=== PATIENT | female | born 1995 | race Caucasian/White ===

== ENCOUNTER 2016-07-23 21:16 | Emergency (ER) | payer BC ==
[2016-07-23 21:43] VITALS: BP 110/76
--- NOTE | 2016-07-23 22:46 | RAD ---
Indication: Palpitations. 2 views of the chest including dual energy PA views demonstrate no mediastinal shift. Heart is of normal size and configuration. Lung kee demonstrate no pleural fluid, pneumonia or pneumothorax. IMPRESSION: No active cardiopulmonary disease is noted.
[2016-07-23 22:49] LABS: Hematocrit 40 % (35-47); Mean Corpuscular HGB Conc 33 g/dl (31-36); Mean Corpuscular Hemoglobin 28 pg (27-31); Mean Corpuscular Volume 84 fL (80-97); Mean Platelet Volume 8 um3 (7.4-10.4); Red Blood Count 4.72 10^6/ul (4.0-5.4); Red Cell Distribution Width 14 % (10.5-15); White Blood Count 7.5 10^3/ul (3.5-10.8)
[2016-07-23 23:02] LABS: Albumin 4.4 g/dL (3.2-5.2); BUN/Creatinine Ratio 12.9 (8-20); Calcium 9.5 mg/dL (8.6-10.3); EGFR African American 135.8 (>60); EGFR Non-African American 105.6 (>60); Globulin 2.7 g/dL (2-4); Magnesium 2.2 mg/dL (1.9-2.7); Potassium 3.8 mmol/L (3.5-5.0); Total Bilirubin 0.3 mg/dL (0.2-1.0); Total Protein 7.1 g/dL (6.4-8.9)
[2016-07-23 23:28] LABS: TSH (Thyroid Stimulating Horm) 1.9 mcIU/mL (0.34-5.60)
--- NOTE | 2016-07-23 23:28 | ED ---
Christian Gonzalez Aidan, scribed for Peyton Rogersuel on 07/23/16 at 2208 . Palpitations / Dysrhythmia - HPI Summary HPI Summary: 20 y/o female presents to the ED via transfer from the Urgent Care with a complaint of acute, moderate episodes of palpitations that have persisted intermittently for the past several months. While at the Urgent Care, her ekg showed borderline QTs. Pt denies any CP or SOB at rest or during exertion. Hx of anxiety and IUD. - History of Current Complaint Chief Complaint: EDDysrhythmPalp Time Seen by Provider: 07/23/16 21:39 Hx Obtained From: Patient Onset/Duration: Gradual Onset, Lasting Weeks, Still Present Timing: Intermittent Episodes Lasting: Severity Initially: Moderate Severity Currently: Moderate Character: Fast Aggravating: Nothing - unknown Alleviating: Nothing - unknown Associated Signs & Symptoms: Negative - Allergy/Home Medications Allergies/Adverse Reactions: Allergies Allergy/AdvReac Type Severity Reaction Status Date / Time No Known Allergies Allergy Verified 07/23/16 20:15 PMH/Surg Hx/FS Hx/Imm Hx - Surgical History Surgery Procedure, Year, and Place: adnoidectomy Infectious Disease History: No Infectious Disease History: Denies: Traveled Outside the [place] in Last 30 Days - Family History Known Family History: Negative: Cardiac Disease, Hypertension, Diabetes Family History: NO FAM HX OF SUDDEN CARDIAC - Social History Occupation: Student Lives: Alone Alcohol Use: Rare Substance Use Type: Reports: None Smoking Status (MU): Never Smoked Tobacco Review of Systems Constitutional: Negative Eyes: Negative ENT: Negative Positive: Palpitations. Negative: Chest Pain Respiratory: Negative Gastrointestinal: Negative Genitourinary: Negative Musculoskeletal: Negative Skin: Negative Neurological: Negative Psychological: Normal All Other Systems Reviewed And Are Negative: Yes Physical Exam Triage Information Reviewed: Yes Vital Signs On Initial Exam: Initial Vitals Temp Pulse Resp BP Pulse Ox 98.3 F 95 18 130/79 100 07/23/16 21:21 07/23/16 21:21 07/23/16 21:21 07/23/16 21:21 07/23/16 21:21 Vital Signs Reviewed: Yes Appearance: Positive: Well-Appearing, No Pain Distress Skin: Positive: Warm, Skin Color Reflects Adequate Perfusion, Dry Head/Face: Positive: Normal Head/Face Inspection Eyes: Positive: EOMI, BILLY ENT: Positive: Normal ENT inspection Neck: Positive: Supple, Nontender Respiratory/Lung Sounds: Positive: Clear to Auscultation, Breath Sounds Present Cardiovascular: Positive: Normal, RRR, Pulses are Symmetrical in both Upper and Lower Extremities Abdomen Description: Positive: Nontender, Soft Bowel Sounds: Positive: Present Musculoskeletal: Positive: Normal, Strength/ROM Intact Neurological: Positive: Normal, Sensory/Motor Intact, Alert, Oriented to Person Place, Time Psychiatric: Positive: Normal, Affect/Mood Appropriate AVPU Assessment: Alert - Tilly Coma Scale Coma Scale Total: 15 Diagnostics - Vital Signs Vital Signs Temp Pulse Resp BP Pulse Ox 07/23/16 21:37 98 F 98 16 110/76 100 07/23/16 21:21 98.3 F 95 18 130/79 100 - Laboratory Result Diagrams: 07/23/16 22:37 07/23/16 22:37 Lab Statement: Any lab studies that have been ordered have been reviewed, and results considered in the medical decision making process. - Radiology CHEST X-RAY Xray Interpretation: No Acute Changes - IMPRESSION: No active cardiopulmonary disease is noted. Radiology Interpretation Completed By: Radiologist - EKG EKG 2127 Cardiac Rate: NL - 94 BPM EKG Interpretation: SINUS RHYTHM Course/Dx - Course Course Of Treatment: 20 y/o female presents with palpitations that have persisted intermittently for the past several months, according to the Pt. Labs and imaging reviewed. D-Dimer was <200. The patient will be diagnosed with palpitations and anxiety and discharged home. - Diagnoses Provider Diagnoses: Palpitations, Anxiety Discharge - Discharge Plan Condition: Stable Disposition: HOME Discharge Disposition Comment: Please follow up with your primary care provider within 3 days. Patient Education Materials: Palpitations (ED), Anxiety (ED) The documentation as recorded by the Christian mckay Aidan accurately reflects the service I personally performed and the decisions made by , Micheal Rogers.
== END 2016-07-23 23:41 | disposition home or self-care (01) ==
LOC: ED 21:16
DX: R00.2 Palpitations (principal); F41.9 Anxiety disorder, unspecified
CPT/HCPCS: 36415; 71020; 80053; 83735; 83880; 84443; 84484; 84702; 85025; 85379; 85610; 85730; 93005; 99281